=== PATIENT | male | born 1960 | race Caucasian/White ===

== ENCOUNTER 2017-05-30 17:01 | Emergency (ER) | payer SELFPAY ==
[2017-05-30] MEDS ORDERED: HYDROmorphONE/DILAUDID 1 MG/ML INJ IVP ONE (17:29)
[2017-05-30] MEDS ORDERED: NS 1,000 ML IV ONE (17:29)
[2017-05-30] MEDS ORDERED: ONDANSETRON 4 MG/2 ML VIAL IVP ONE (17:29)
--- NOTE | 2017-05-30 17:31 | EDPHY ---
H & P Stated Complaint: R inguinal hernia Time Seen by Provider: 05/30/17 17:25 HPI/ROS: CHIEF COMPLAINT: Right inguinal hernia HISTORY OF PRESENT ILLNESS: Patient is a 57-year-old man with a known right inguinal hernia. He states that he is able to reduce it typically without much problem however over the last month it is become harder to reduce. Today he has not been able to reduce it and it is becoming painful. He states that it is been out for about 3 hr. He called an ambulance who gave him 200 mcg of fentanyl. No fever, no vomiting. REVIEW OF SYSTEMS: Constitutional: denies: chills, fever, recent illness, recent injury EENTM: denies: blurred vision, double vision, nose congestion Respiratory: denies: cough, shortness of breath Cardiac: denies: chest pain, irregular heart rate, lightheadedness, palpitations Gastrointestinal/Abdominal: See HPI Genitourinary: See HPI Musculoskeletal: denies: joint pain, muscle pain Skin: denies: lesions, rash, jaundice, bruising Neurological: denies: headache, numbness, paresthesia, tingling, dizziness, weakness Hematologic/Lymphatic: denies: blood clots, easy bleeding, easy bruising Immunologic/allergic: denies: HIV/AIDS, transplant EXAM: GENERAL: Well-appearing, well-nourished and in no acute distress. HEAD: Atraumatic, normocephalic. EYES: Pupils equal round and reactive to light, extraocular movements intact, sclera anicteric, conjunctiva are normal. ENT: TMs normal, nares patent, oropharynx clear without exudates. Moist mucous membranes. NECK: Normal range of motion, supple without lymphadenopathy or JVD. LUNGS: Breath sounds clear to auscultation bilaterally and equal. No wheezes rales or rhonchi. HEART: Regular rate and rhythm without murmurs, rubs or gallops. ABDOMEN: Soft, nontender, normoactive bowel sounds. No guarding, no rebound. No masses appreciated. : Right inguinal hernia visible, tender, patient will not allow attempts at reduction. BACK: No CVA tenderness, no spinal tenderness, step-offs or deformities EXTREMITIES: Normal range of motion, no pitting or edema. No clubbing or cyanosis. NEUROLOGICAL: Cranial nerves II through XII grossly intact. Normal speech, normal gait. 5/5 strength, normal movement in all extremities, normal sensation PSYCH: Normal mood, normal affect. SKIN: Warm, dry, normal turgor, no visible rashes or lesions. Source: Patient Exam Limitations: No limitations - Personal History Current Tetanus/Diphtheria Vaccine: Unsure Current Tetanus Diphtheria and Acellular Pertussis (TDAP): Unsure - Medical/Surgical History Hx Asthma: No Hx Chronic Respiratory Disease: No Hx Diabetes: No Hx Cardiac Disease: No Hx Renal Disease: No Hx Cirrhosis: No Hx Alcoholism: No Hx HIV/AIDS: No Hx Splenectomy or Spleen Trauma: No Other PMH: PE's, Multiple orthopedic injuries - Family History Significant Family History: No pertinent family hx - Social History Smoking Status: Never smoked Alcohol Use: Sober Drug Use: None Constitutional: Initial Vital Signs Temperature (C) 36.5 C 05/30/17 17:09 Heart Rate 49 L 05/30/17 17:09 Respiratory Rate 18 05/30/17 17:09 Blood Pressure 146/86 H 05/30/17 17:09 O2 Sat (%) 98 05/30/17 17:09 O2 Delivery Mode [Post Nasal Cannula Procedure 2nd] O2 Delivery Mode [Post Non-Rebreather Mask Procedure 1st] O2 Delivery Mode [Procedural Non-Rebreather Mask 4th] O2 Delivery Mode [Procedural Non-Rebreather Mask 3rd] O2 Delivery Mode [Procedural Non-Rebreather Mask 2nd] O2 Delivery Mode [Procedural Non-Rebreather Mask 1st] O2 Delivery Mode [.Immediate Non-Rebreather Mask Pre-Procedure] O2 Delivery Mode Room Air O2 (L/minute) [Post Procedure 2 2nd] O2 (L/minute) [Post Procedure 15 1st] O2 (L/minute) [Procedural 4th] 15 O2 (L/minute) [Procedural 3rd] 15 O2 (L/minute) [Procedural 2nd] 15 O2 (L/minute) [Procedural 1st] 15 O2 (L/minute) [.Immediate Pre- 15 Procedure] Allergies/Adverse Reactions: No Known Allergies Allergy (Unverified 05/30/17 17:12) Home Medications: Medication Instructions Recorded NK [No Known Home Meds] 05/30/17 Medical Decision Making Procedures: Procedure: Procedural sedation. Indication: Hernia reduction. A pre-sedation evaluation was completed on the patient just prior to the procedure. Patient is an appropriate candidate for procedural sedation with a normal 3-3-2 rule assessment and a Mallampati airway score of class 1. The risks of the sedation were discussed including but not limited to dysrhythmia, need for airway intervention or general anesthesia, disability, ; and verbal consent obtained. A timeout was observed and patient's identity confirmed. The patient was sedated with propofol and ketamine. The patient was monitored with continuous pulse oximetry, capnography, and order entry representative. There were no complications and no significant hypoxemia. I remained at the bedside for the sedation. The total time I spent in the procedural sedation was 16 minutes. Procedure: Hernia reduction the patient's hernia was reduced with the study compression and massage. He was placed in Trendelenburg for the procedure. ED Course/Re-evaluation: 6:04 p.m. the patient is and elevated with an ice pack in his groin. He still has hernia present. He is very resistant to having me try and reduce it. He would like to try himself. I told him to gradually press on it and walk on it. He states that he typically reduces it himself so he thinks he may be able to do it. 6:35 p.m. the patient is not willing to allow us to try and reduce his hernia or place much pressure on it himself. We will attempt to reduced with procedural sedation. 7:30 p.m. the patient's hernia was successfully reduced. He is feeling much better. 8:00 p.m. the patient passed his road test and is doing much better. We discussed follow-up with surgery for elective repair. He no longer has any pain. Differential Diagnosis: Partial list of the Differential diagnosis considered include but were not limited to; inguinal hernia and although unlikely based on the history and physical exam, I also considered torsion, infection, epididymitis. I discussed these differential diagnoses and the plan with the patient as well as the usual and expected course. The patient understands that the diagnosis is provisional and that in medicine we are not always correct and that further workup is often warranted. Usual and customary warnings were given. All of the patient's questions were answered. The patient was instructed to return to the emergency department should the symptoms at all worsen or return, otherwise to followup with the physician as we discussed. - Data Points Medications Given: Discontinued Medications Hydromorphone HCl (Dilaudid) 1 mg IVP EDNOW ONE Stop: 05/30/17 17:30 Last Admin: 05/30/17 17:34 Dose: 1 mg Sodium Chloride (Ns) 1,000 mls @ 0 mls/hr IV EDNOW ONE; Wide Open PRN Reason: Protocol Stop: 05/30/17 17:30 Last Admin: 05/30/17 17:35 Dose: 1,000 mls Ketamine HCl (Ketamine) 80 mg IVP EDNOW ONE Stop: 05/30/17 18:56 Last Admin: 05/30/17 18:55 Dose: 80 mg Ondansetron HCl (Zofran) 4 mg IVP EDNOW ONE Stop: 05/30/17 17:30 Last Admin: 05/30/17 17:35 Dose: 4 mg Propofol (Diprivan) 60 mg IVP EDNOW ONE Stop: 05/30/17 18:56 Last Admin: 05/30/17 18:55 Dose: 60 mg Departure - Departure Disposition: Home, Routine, Self-Care Clinical Impression: Inguinal hernia, right Condition: Fair Instructions: Inguinal Hernia (ED) Referrals: Patient,NotPresent [Unknown] - As per Instructions Francisco Mix MD [Medical Doctor] - As per Instructions
[2017-05-30] MEDS ORDERED: PROPOFOL 200 MG/20 ML VIAL ONE (18:39)
[2017-05-30] MEDS ORDERED: KETAMINE 200 MG/20 ML VIAL ONE (18:39)
[2017-05-30] MEDS ORDERED: KETAMINE 200 MG/20 ML VIAL IVP ONE (18:55)
[2017-05-30] MEDS ORDERED: PROPOFOL 200 MG/20 ML VIAL IVP ONE (18:55)
[2017-05-30 19:43] VITALS: TEMP 97.5
[2017-05-30 20:22] VITALS: BP 143/81; PULSE 63; RESP 18; O2SAT 94
== END 2017-05-30 20:22 | disposition home or self-care (01) ==
DX: K40.90 Unilateral inguinal hernia, without obstruction or gangrene, not specified as recurrent (principal); E86.9 Volume depletion, unspecified
CPT/HCPCS: 96374; J1170; J2405; J2704

== ENCOUNTER 2017-08-02 08:42 | Emergency (ER) | payer MEDICAID ==
[2017-08-02 08:49] VITALS: TEMP 98.1
--- NOTE | 2017-08-02 08:53 | EDPHY ---
H & P Stated Complaint: prod cough x 1 wk, rib area pain w/cough Time Seen by Provider: 08/02/17 08:52 HPI/ROS: HPI: This is a 57-year-old male who presents with Chief Complaint: prod cough x 1 wk, rib area pain w/cough Location: chest Quality: Productive cough Duration: Greater than 1 week Signs and Symptoms: no shortness of breath at rest, no shortness of breath on exertion, + cough, no chest pain, + right lower rib pain, no palpitations, no lower extremity edema, no wheezing, no orthopnea, no paroxysmal nocturnal dyspnea, no fever, no injury/trauma, no hemoptysis, no carpal pedal spasms Timing: Worsening Severity: Moderate to severe Context: Patient has a history of asthma diagnosed in the past, marijuana use, former smoker presents with greater than 1 week history of "chest cold." He reports that is worsening especially the last 3 days now becoming a productive cough. He reports that he has coughed so hard he believes that he may have strained a muscle in his right side or even fractured a rib. Has appointment on Thursday with General surgery in reference to his inguinal hernia. Reports that every time he coughs as coughing spells it makes inguinal hernia bulge and cause significant pain. He is requesting pain medications. Patient reports that this illness feels different from his time he was nose with pulmonary embolisms. He reports he took a long distance trip [place] prior to diagnosis. Denies any calf pain/recent long distance travel/shortness of breath /palpitations. Modifying Factors: None Comment: ROS: see HPI Constitutional: No fever, no chills, no weight loss Eyes: No blurred vision Respiratory: No shortness of breath, + cough Cardiovascular: No chest pain, no palpitations, no lower extremity edema Gastrointestinal: No nausea, no vomiting, no diarrhea Genitourinary: No dysuria Extremities: No myalgias Neurologic: No weakness, no numbness Skin: No rashes Hematologic: No bruising, no bleeding MEDICAL/SURGICAL/SOCIAL HISTORY: Medical history: Pulmonary embolism 2 years ago, asthma, marijuana use Surgical history: Multiple orthopedic injuries Social history: Currently in a relationship. Employed. CONSTITUTIONAL: Ill but nontoxic-appearing adult male, awake and alert, no obvious distress HEENT: Atraumatic and normocephalic, PERRL, EOMI. Tympanic membranes clear. Oropharynx clear, no exudate and moist pink mucosa. Airway patent. No lymphadenopathy. No meningismus. Cardiovascular: Normal S1/S2, regular rate, regular rhythm, without murmur rub or gallop. PULMONARY/CHEST: Symmetrical and nontender. Coarseness throughout. Fair to average air movement. Coughs with inspiration. No accessory muscle usage. ABDOMEN: Soft, nondistended, nontender, no rebound, no guarding, no peritoneal signs, no masses or organomegaly. No CVAT. EXTREMITIES: 2/2 pulses, strength 5/5, no deformities, no clubbing, no cyanosis or edema. NEUROLOGICAL: no focal neuro deficits. GCS 15. SKIN: Warm and dry, no erythema. no rash. Good capillary refill. Source: Patient Exam Limitations: No limitations - Medical/Surgical History Hx Asthma: No Hx Chronic Respiratory Disease: No Hx Diabetes: No Hx Cardiac Disease: No Hx Renal Disease: No Hx Cirrhosis: No Hx Alcoholism: No Hx HIV/AIDS: No Hx Splenectomy or Spleen Trauma: No Other PMH: PE's, Multiple orthopedic injuries, asthma hx - Social History Smoking Status: Current some day smoker Constitutional: Initial Vital Signs Temperature (C) 36.7 C 08/02/17 08:46 Heart Rate 69 08/02/17 08:46 Respiratory Rate 18 08/02/17 08:46 Blood Pressure 125/89 H 08/02/17 08:46 O2 Sat (%) 96 08/02/17 08:46 O2 Delivery Mode Room Air Allergies/Adverse Reactions: No Known Allergies Allergy (Verified 08/02/17 08:44) Home Medications: Medication Instructions Recorded Albuterol Sulfate [Proair Hfa] 1 - 2 puffs IH Q4 PRN #1 hfa.aer.ad 08/02/17 Benzonatate [Tessalon Pearles (RX)] 100 mg PO Q6 PRN #15 cap 08/02/17 Doxycycline Hyclate [Vibramycin 100 mg PO BID #14 cap 08/02/17 100 MG (*)] oxyCODONE/APAP 5/325 [Percocet 1 - 2 tab PO Q4H PRN #10 tab 08/02/17 5/325 (*)] predniSONE 50 mg PO DAILY #4 tablet 08/02/17 Medical Decision Making - Diagnostics Imaging Results: Imaging Impressions Chest X-Ray 08/02/17 08:53 Impression: Clear lungs. No pneumonia or effusion. Ribs X-Ray 08/02/17 08:53 Impression: Negative. No acute rib fracture. ED Course/Re-evaluation: Chest x-ray, right rib series x-ray, nebulizer therapy, oral medications ordered Vital signs reviewed upon arrival and hypoxia/fever/tachycardia. Patient does not have retractions/respiratory distress. Given DuoNeb therapy, p.o. Prednisone, p.o. Tessalon Perles, p.o. Percocet x2 Patient does not live he has a pulmonary embolism and appears patient have back to bronchitis versus community-acquired pneumonia. He has deferred laboratory testing including a D-dimer at this time. Chest x-ray my read shows no signs of opacity; COPD changes noted. Rib series shows no acute fracture. Will treat as bacterial bronchitis; Symptoms greater than 7 days with history of possible and/or presumed lung disease Given doxycycline as no antibiotics in the last 3 months; inhaler, steroids, pain control Reassessed patient at discharge who reports considerable relief of pain. This patient was seen under the supervision of my secondary supervising physician. I evaluated care for this patient independently. Discussed this patient with Dr. Lim who did not see the patient. Differential Diagnosis: Differential including but not limited to viral syndromes including influenza, pulmonary embolism, pneumonia and sepsis. - Data Points Medications Given: Discontinued Medications Albuterol/Ipratropium (Duoneb) 3 ml IH EDNOW ONE Stop: 08/02/17 09:07 Last Admin: 08/02/17 09:12 Dose: 3 ml Benzonatate (Tessalon Pearles) 200 mg PO EDNOW ONE Stop: 08/02/17 09:08 Last Admin: 08/02/17 09:11 Dose: 200 mg Oxycodone/Acetaminophen (Percocet 5/325) 2 tab PO EDNOW ONE Stop: 08/02/17 09:08 Last Admin: 08/02/17 09:11 Dose: 2 tab Prednisone (Prednisone) 60 mg PO EDNOW ONE Stop: 08/02/17 09:08 Last Admin: 08/02/17 09:10 Dose: 60 mg Departure - Departure Disposition: Home, Routine, Self-Care Clinical Impression: Acute bacterial bronchitis Condition: Good Instructions: Doxycycline (By mouth), Oxycodone/Acetaminophen (By mouth), Albuterol (By breathing), Prednisone (By mouth), Costochondritis (ED), Acute Bronchitis (ED), Bronchospasm (ED) Additional Instructions: Chest x-ray today does not show any signs of pneumonia or rib fractures. It appears that you have a bronchitis and due to the extended length of time we will start antibiotics. Please take 7 days of doxycycline. Use albuterol inhaler as needed for shortness of breath/wheezing. Refrain from smoking marijuana until all symptoms have resolved. Use Tessalon Perles as needed for cough. Use Percocet every 4 hr as needed for severe breakthrough pain. Take Prednisone 50 mg daily take for the next 4 days. Return to the ER immediately if you experience fevers/chills, shortness of breath, abdominal pain, inability to tolerate oral intake, or any other symptoms that concern you. Referrals: [facility],. [Clinic] - As per Instructions Prescriptions: Albuterol Sulfate [Proair Hfa] 1 - 2 puffs IH Q4 PRN #1 hfa.aer.ad PRN Reason: Short Of Breath/Dyspnea Benzonatate [Tessalon Pearles (RX)] 100 mg PO Q6 PRN #15 cap PRN Reason: Cough, Moderate Doxycycline Hyclate [Vibramycin 100 MG (*)] 100 mg PO BID #14 cap oxyCODONE/APAP 5/325 [Percocet 5/325 (*)] 1 - 2 tab PO Q4H PRN #10 tab PRN Reason: Pain, Severe predniSONE 50 mg PO DAILY #4 tablet
[2017-08-02] MEDS ORDERED: IPRATROPIUM/ALBUTEROL 3 ML DEYVIAL IH ONE (09:06)
[2017-08-02] MEDS ORDERED: predniSONE 20 MG TAB PO ONE (09:07)
[2017-08-02] MEDS ORDERED: BENZONATATE 100 MG CAP PO ONE (09:07)
[2017-08-02] MEDS ORDERED: OXYCODONE/APAP 5/325 TAB PO ONE (09:07)
[2017-08-02 10:12] VITALS: BP 132/71; PULSE 56; RESP 16; O2SAT 97
== END 2017-08-02 10:11 | disposition home or self-care (01) ==
DX: J20.8 Acute bronchitis due to other specified organisms (principal); J45.909 Unspecified asthma, uncomplicated; F17.200 Nicotine dependence, unspecified, uncomplicated
CPT/HCPCS: J7512

== ENCOUNTER 2018-10-28 09:43 | Emergency (ER) | payer SELFPAY, MEDICAID | END 2018-10-28 11:36 | disposition home or self-care (01) ==